=== PATIENT | female | born 1935 | race Caucasian/White ===

== ENCOUNTER 2024-11-30 10:48 | Observation (INO) ==
--- NOTE | 2024-11-03 14:14 | PAT Medication Instructions ---
Medication Instructions Date of Service November 03, 2024 Home Medications Medication Instructions Recorded amlodipine 5 mg tablet 5 mg PO HS #90 tabs 07/22/24 diclofenac sodium 3 % topical gel 2 g topical BID PRN pain #300 grams 07/22/24 losartan 100 mg tablet 50 mg (1/2 x 100 mg) PO BID #90 07/22/24 tabs Medication List: multivitamin 1 tab PO DAILY amlodipine 5 mg tablet 5 mg PO HS diclofenac sodium 3 % topical gel 2 g topical BID PRN pain losartan 100 mg tablet 50 mg (1/2 x 100 mg) PO BID acetaminophen 650 mg tablet,extended release (Tylenol 8 Hour) 650 mg PO Q12H PRN Pain ascorbic acid (vitamin C) 250 mg chewable tablet (Vitamin C) 250 mg PO DAILY cholecalciferol (vitamin D3) 25 mcg (1,000 unit) tablet (Vitamin D3) 25 mcg PO DAILY MEDICATION INSTRUCTIONS: Continue as directed diclofenac sodium 3 % topical gel 2 g topical BID PRN pain (do not apply after bathing prior to surgery) DO NOT take the morning of surgery ascorbic acid (vitamin C) 250 mg chewable tablet (Vitamin C) 250 mg PO DAILY multivitamin 1 tab PO DAILY cholecalciferol (vitamin D3) 25 mcg (1,000 unit) tablet (Vitamin D3) 25 mcg PO DAILY losartan 100 mg tablet 50 mg (1/2 x 100 mg) PO BID Take morning of surgery With a small sip of water, OTHERWISE NOTHING TO EAT OR DRINK AFTER MIDNIGHT: acetaminophen 650 mg tablet,extended release (Tylenol 8 Hour) 650 mg PO Q12H PRN Pain Take evening before surgery amlodipine 5 mg tablet 5 mg PO HS losartan 100 mg tablet 50 mg (1/2 x 100 mg) PO BID acetaminophen 650 mg tablet,extended release (Tylenol 8 Hour) 650 mg PO Q12H PRN Pain Other Notes If you have any questions please call us at [phone] or [phone] or [phone] or [phone]
--- NOTE | 2024-11-13 11:17 | Anesthesiology Consultation ---
Date of Service November 13, 2024 Assessment & Plan (1) Encounter for pre-operative examination: - Infectious disease screening: Per assessment on 11/13/24- No known recent infectious disease contacts or current infectious disease symptoms. - Outpatient joint assessment: Pt currently scheduled for inpatient pathway. If surgeon requests review for outpatient joint pathway, patient is not recommended candidate for outpatient joint program from anesthesia standpoint based on available information. Chart Review Chart Review: Acceptable Risk for Surgery and Patient seen in Pre Admission Testing Teaching & Discussion Pre-Anesthesia Teaching/Discussion Notes: Instructed NPO after midnight before surgery,except medications with 15 cc of water. Medication instructions provided according to the PAT guidelines. History Surgery Operation Date: 11/30/24 10:00 Proposed Procedures p Robotic assisted Left Total Knee Arthroplasty - Don Rios DO Height/Weight Height: 5 ft 2 in Weight: 73.8 kg Allergies Allergy/AdvReac Type Severity Reaction Status Date / Time hydrochlorothiazide AdvReac Mild Hyponatremi Verified 11/03/24 12:21 a Medications Home Medications Medication Instructions Recorded Confirmed Last Taken multivitamin 1 tab PO DAILY 11/10/20 11/03/24 Unknown amlodipine 5 mg tablet 5 mg PO HS #90 tabs 07/22/24 11/03/24 Unknown diclofenac sodium 3 % topical gel 2 g topical BID PRN pain #300 grams 07/22/24 11/03/24 Unknown losartan 100 mg tablet 50 mg (1/2 x 100 mg) PO BID #90 07/22/24 11/03/24 Unknown tabs acetaminophen 650 mg 650 mg PO Q12H PRN Pain 11/03/24 11/03/24 Unknown tablet,extended release (Tylenol 8 Hour) ascorbic acid (vitamin C) 250 mg 250 mg PO DAILY 11/03/24 11/03/24 Unknown chewable tablet (Vitamin C) cholecalciferol (vitamin D3) 25 25 mcg PO DAILY 11/03/24 11/03/24 Unknown mcg (1,000 unit) tablet (Vitamin D3) Past Medical History Medical History CKD (chronic kidney disease) HTN (hypertension) Hypertriglyceridemia no meds Osteoarthritis Prediabetes diet controlled Exercise / Class Metabolic Activity III < 4 Walking/Shop/Light housework Past Family History Family History Mother Kidney disease Father Lung disease Silicosis Denies family history of Ovarian cancer Prostate cancer Myocardial infarction Breast cancer Colorectal cancer Past Surgical History Surgical History History of cataract surgery R/L History of wisdom tooth extraction S/P tonsillectomy and adenoidectomy Past Anesthesia History No Hx of Anesthesia Complications and No Family Hx of Anesthesia Complications History of PONV No Hx of PONV and No Hx of Motion Sickness Social History Smoking Status: Former smoker Do You Dip or Chew Tobacco: No Smoking End Date: Quit ~30 years ago (hx social on/off) Hx Alcohol Use: Yes Alcohol type: beer alcohol intake frequency: holidays/special occasions only Hx Substance Use: No substance use type: does not use Review of Systems Patient denies chest pain, shortness of breath, fever, chills, cough, wheezing, palpitations. Physical Exam Vital Signs BP 152/88 P 58 TEMP 97.7 SP02 97%RA RESP 16 Physical Mildly decreased cervical extension range of motion. Full TMJ range of motion. TMD 3 finger breaths Mallampati Score I Dentition: poor dentition, missing sides/molars Lungs: clear throughout to auscultation Cardiac: regular rate and rhythm, no murmurs noted Spine: normal Carotid arteries: negative bruit Extremities: no LE edema Lab Results Anesthesia Preop Results Results Anesthesia Widget: WBC 5.58 K/ul (4.8-10.8) 11/13/24 Hgb 15.4 g/dl (12.0-16.0) 11/13/24 Hct 45.0 % (37.0-47.0) 11/13/24 Plt 231 K/uL (130-400) 11/13/24 Na 138 mmol/L (136-145) 11/13/24 K 4.8 mmol/L (3.5-5.1) 11/13/24 Cl 103 mmol/L (98-107) 11/13/24 CO2 29 mmol/L (21-32) 11/13/24 BUN 15 mg/dl (6-23) 11/13/24 Creat 0.94 mg/dl (0.6-1.2) 11/13/24 Glucose Level 88 mg/dl (70-99(Fasting)) 11/13/24 PT 10.3 Seconds (9.0-12.0) 11/13/24 PTT 29 Seconds (21-31) 11/13/24 INR 0.9 (0.9-1.1) 11/13/24 Blood Type O Positive 11/13/24 Antibody Screen NEGATIVE 11/13/24 Testing Electrocardiogram Date: 11/13/24 SB with first degree AVB at 52pm. LAD. Minimal voltage criteria for LVH, may be normal variant. PRWP, consider anterior WI vs lead placement vs LVH. Chest X-Ray Date: 11/13/24 FINDINGS: There is prominent cardiomegaly without pulmonary vascular congestion. No consolidation or pleural effusion. Lungs are hyperexpanded. IMPRESSION: No acute findings.
--- NOTE | 2024-11-26 13:26 | History & Physical Report ---
Date of Service November 26, 2024 Assessment & Plan (1) Osteoarthritis of left knee: We will proceed with a left total knee arthroplasty. Postoperatively, she will be started on aspirin for DVT prophylaxis and kept overnight in the hospital for postop medical management. She can have the hospital set up home health for discharge. History of Present Illness Chief Complaint: Osteoarthritis left knee. Primary Care Provider: GORDO Watts Lucille is a pleasant 89-year-old female who has been dealing with chronic increasing left knee pain. She said she had a plateau fracture in 1992. She has developed excessive valgus since. It is to the point where she is having difficulty ambulating with the left leg. She is mostly wheelchair-bound because of her left knee. X-rays show advanced osteoarthritis mostly involving the lateral compartment. After failed conservative treatment, she has elected proceed with a left total knee arthroplasty. Allergies Allergy/AdvReac Type Severity Reaction Status Date / Time hydrochlorothiazide AdvReac Mild Hyponatremi Verified 11/03/24 12:21 a Home Medications Medication Instructions Recorded Confirmed Type multivitamin 1 tab PO DAILY 11/10/20 11/03/24 History amlodipine 5 mg tablet 5 mg PO HS #90 tabs 07/22/24 11/03/24 Rx diclofenac sodium 3 % topical gel 2 g topical BID PRN pain #300 grams 07/22/24 11/03/24 Rx losartan 100 mg tablet 50 mg (1/2 x 100 mg) PO BID #90 07/22/24 11/03/24 Rx tabs acetaminophen 650 mg 650 mg PO Q12H PRN Pain 11/03/24 11/03/24 History tablet,extended release (Tylenol 8 Hour) ascorbic acid (vitamin C) 250 mg 250 mg PO DAILY 11/03/24 11/03/24 History chewable tablet (Vitamin C) cholecalciferol (vitamin D3) 25 25 mcg PO DAILY 11/03/24 11/03/24 History mcg (1,000 unit) tablet (Vitamin D3) Past Med/Surg History Problem List (Updated 11/26/24 @ 13:26 by Don Rios DO) Osteoarthritis of left knee Encounter for pre-operative examination Hyponatremia Chronic kidney disease, stage 3 (moderate) Hypertriglyceridemia Osteoarthritis Prediabetes Hypertension (~10/2020) Medical History Hypertriglyceridemia no meds HTN (hypertension) Osteoarthritis CKD (chronic kidney disease) Prediabetes diet controlled Surgical History History of cataract surgery R/L History of wisdom tooth extraction S/P tonsillectomy and adenoidectomy Family History Mother Kidney disease Father Lung disease Silicosis Denies family history of Ovarian cancer Prostate cancer Myocardial infarction Breast cancer Colorectal cancer Social History Smoking Status: Former smoker Tobacco Type: Cigarettes Age Started Using Tobacco: 23; Age Quit Using Tobacco: 62; packs per day: 0.25; Second Hand Exposure: No; Do You Dip or Chew Tobacco: No; Hx Alcohol Use: Yes Alcohol type: beer Alcohol Intake Frequency: 2-4 x/Month Hx Substance Use: No Preferred Language: Amharic Communication Ability: Effective Hearing Ability: Normal Keg Raiser Required: No Beliefs That Will Affect Care: None marital status: / Current Living Situation: Family Current Living Situation Comment: son lives with her and granddaughter current occupational status: retired Feels Safe at Home: Yes Childhood Exposure to Second-Hand Smoke: No Diet: regular caffeine: Yes (coffee x 2 - 3 per day) during the past year weight has: remained stable Dental Care, Regularly: Yes Physical Activity Frequency: Daily Seatbelt Use: always Sunscreen Use: No (does not go in sun) Assistive Devices: Cane and Glasses Review of Systems All systems reviewed & are unremarkable except as noted in HPI & below. Physical Exam On physical exam of the left knee, she has a significant valgus deformity. Tenderness palpation of the distal lateral femoral condyle and over the lateral joint line.. Constitutional WD/WN, vitals as above Eyes PERRL, conjunctivae normal, anicteric sclerae ENMT external ear and nose normal, oropharynx normal Neck trachea midline, no thyromegaly Respiratory normal respiratory effort Cardiovascular RRR, no murmur, no edema Gastrointestinal (Abdomen) normal bowel sounds, soft, nontender, no hepatosplenomegaly Psychiatric A+Ox3, euthymic affect Results & Data Results & Data Laboratory Results . Diagnostic Findings X-rays of the left knee show advanced osteoarthritis with joint space narrowing, osteophyte formation, and [id number] articulation.. PG Care Time/CCT Total # of Minutes Spent Total Time Spent with Patient: Total time spent is greater than 50% in coordination of care (as documented) at patient's floor/unit and/or counseling patient: Coding Level of Care Code None Diagnoses Osteoarthritis of left knee M17.12
[2024-11-30] MEDS: FAMOTIDINE 20 MG TAB PO SCH (10:46)
[2024-11-30] MEDS: GABAPENTIN 300 MG CAP PO SCH (10:46)
[2024-11-30] MEDS: dexAMETHasone**PF** 10 MG/ML VIAL IV SCH (10:46)
[2024-11-30] MEDS: ACETAMINOPHEN 500 MG TAB PO SCH ×2 (10:46→22:09)
[2024-11-30] MEDS: LR 60ML/HR IV SCH (10:47)
[~2024-11-30 10:48] MED LIST: BUPIVACAINE 0.5 % 5 MG/1 ML PF 10ML VIAL ONE; BUPIVACAINE/EPINEPHRINE 0.25% 1:200,000 30 ML VIAL ONE; DEXAMETHASONE SOD INJ 4 MG/ML VIAL ONE
[2024-11-30] MEDS: LR 500ML BOLUS, THEN 15ML/HR IV SCH (11:05)
[2024-11-30] MEDS ORDERED: PROPOFOL IV EMULSION 10 MG/ML 20 ML VIAL IV ONE (11:11)
[2024-11-30] MEDS ORDERED: MIDAZOLAM HCL 1 MG/ML 2ML VIAL ONE (11:11)
--- NOTE | 2024-11-30 11:31 | History & Physical Bridge Note ---
Date of Service November 30, 2024 History & Physical Bridge Note I have examined the patient, reviewed the History & Physical and in the interval since the performance of the History & Physical I have noted the following changes of clinical significance: no changes noted
[2024-11-30] MEDS: TRANEXAMIC ACID 1,000 MG **IV Pre-op IV SCH (12:06)
[2024-11-30] MEDS ORDERED: ONDANSETRON INJ 2 MG/ML 2 ML VIAL IV PRN ×2 (13:03→16:22)
[2024-11-30] MEDS ORDERED: ATROPINE SULFATE 0.1 MG/ML 10ML SYR IV PRN (13:03)
[2024-11-30] MEDS: ORTHO JOINT ANESTHETIC ONE (13:05)
[2024-11-30] MEDS: ROPIV 0.5% 246mg, Ketorolac 30mg, EPINEPHrine 0.5mg in NSS INFIL SCH (13:55)
--- NOTE | 2024-11-30 14:43 | Operative Report ---
PG Post Operative Report Pre & Post Diagnosis Operation Date: 11/30/24 12:05 Pre-Op Diagnosis: Osteoarthritis of left knee Post-Op Diagnosis: Osteoarthritis of left knee I identified the patient and participated in the time-out.: Yes Procedure Operation Date: 11/30/24 12:05 Actual Procedures p Robotic Assisted Left Total Knee Arthroplasty(Left) - Don Rios DO Surgeon Don Rios DO Stock Taker Tai Schaffer PA-C Estimated Blood Loss 30 Findings Consistent with Post-Op Diagnosis Specimens Left femoral and tibial bone Description of Procedure Implants used: I used a Richard Persona total knee arthroplasty system with a size 9 narrow PS femur, D tibia, 31 oval patella, and a size 10 CPS polyethylene bearing. All components were cemented in place with Biomet cement. Lucille arrived [facility] for the above procedure. She was seen in the preoperative holding area and the operative extremity was identified and signed. She was given a preoperative antibiotic, TXA, a spinal anesthetic and an adductor nerve block. She was taken back to the operating room and laid on the table in supine position. She was given basic sedation. The operative knee was then prepped and draped in sterile fashion. A timeout was done, and the patient and the operative extremity was properly identified. A midline incision was made directly over the patella. Dissection was taken down to the extensor mechanism. A medial parapatellar arthrotomy was used. The medial retinaculum was released and the fat pad was mostly excised. The knee was flexed and the ACL, PCL, and meniscus were removed. The alignment of the knee replacement was assisted with a [employer] robotic knee. The femoral array was pinned in the distal femur and the tibial array was pinned using a percutaneous technique in the upper shaft of the tibia. The robot was appropriately calibrated and the structure of the knee was mapped out. The components were then manipulated on the screen to account for any malalignment and to assist in gap balancing. Once I was happy with the placement of the components on the screen, a distal femoral cutting guide was brought in place. The distal femur was then resected. The femur measured to be a size 9. A 4-in-1 cutting block was then put into place by the robot and 2 peg holes were drilled. The 4-in-1 cutting block was then impacted into place and anterior, posterior, and chamfer cuts were made. The cutting block was then brought down to the tibia and pinned into place. The proximal tibia was then resected. The posterior aspect of the knee was then opened up and any additional meniscus fragments and osteophytes were removed. The tibia measured to be a size D. The tibial plate was then placed in the appropriate rotation and the tibia was drilled and punched. Trial components were then placed. The patella was then everted and 9 mm was resected off the posterior aspect of the patella. The patella measured to be a size 31 oval. 3 peg holes were then drilled. A trial patella was placed. A size 10 CPS polyethylene insert was then trialed. The knee was brought through a full range of motion and felt to be stable. Trial components were then removed. The surrounding soft tissues were injected with 100 cc of an orthopedic pain control cocktail. All components were then cemented into place with Biomet cement. The final polyethylene insert was then snapped into place. Once cement was dry the tourniquet was deflated. Hemostasis was obtained. A dilute betadyne lavage was then done for 3 minutes. The joint was then irrigated with normal saline solution. The medial parapatellar arthrotomy was then closed with #1 Vicryl suture. The skin was lynne sed with 2-0 Vicryl, 3-0V lock suture, and Sylwia zip line. A soft compressive dressing was placed. She was then transferred to a hospital bed and taken to the postanesthesia care unit in stable condition. She tolerated the procedure well. Tai Schaffer PA-C, was present for the entire procedure. He was critical for patient positioning, prepping, draping, retraction exposure, wound closure and application of sterile dressing. I attest to the content of the Intraoperative Record and any orders documented therein. Any exceptions are noted below.
--- NOTE | 2024-11-30 15:10 | XRay Report ---
TWO VIEWS LEFT KNEE CLINICAL HISTORY: Postoperative examination. FINDINGS: AP and crosstable lateral portable views of the left knee are obtained. A left knee arthrop lasty is in near anatomic alignment. There has been undersurface remodeling of the patella. No acute fracture is seen. Soft tissue edema and subcutaneous gas expected postsurgical changes. IMPRESSION: Expected postoperative changes status post left knee arthroplasty. No acute fracture is s een. ACT 112: Negative or not required by law. Electronically signed by: Brad Masters M.D. 11/30/2024 3:09 PM
--- NOTE | 2024-11-30 15:50 | Anesthesiology Progress Note ---
Date of Service November 30, 2024 Anesthesia Post Procedure Vital Signs Vital Signs: Temp Pulse Pulse Resp BP Pulse Ox O2 Del Method 11/30/24 15:35 65 20 145/61 H 95 Nasal Cannula 11/30/24 15:25 57 L 16 144/62 H 96 Nasal Cannula 11/30/24 15:15 62 20 136/62 93 Room Air 11/30/24 15:05 36.5 C 73 16 128/60 95 Room Air 11/30/24 14:55 65 18 122/62 97 Oxymask 11/30/24 14:45 64 18 121/57 L 97 Oxymask 11/30/24 14:37 37.1 C 68 18 124/56 L 96 Oxymask 11/30/24 10:25 36.8 C 65 20 192/81 H 96 Room Air O2 Flow Rate 11/30/24 15:35 2 11/30/24 15:25 2 11/30/24 15:15 11/30/24 15:05 11/30/24 14:55 4 11/30/24 14:45 4 11/30/24 14:37 6 11/30/24 10:25 Transfer of Care Handoff Completed per policy Notes Mental Status: alert / awake / arousable Patient Amnestic to Procedure: Yes Nausea / Vomiting: adequately controlled Pain: adequately controlled Airway Patency, RR, SpO2: stable & adequate BP & HR: stable & adequate Hydration State: stable & adequate Anesthetic Complications: no major complications apparent
[2024-11-30] MEDS ORDERED: NALOXONE HCL 0.4 MG/1 ML VIAL/CARP IV PRN (16:22)
[2024-11-30] MEDS ORDERED: METOCLOPRAMIDE HCL INJ 5 MG/ML 2 ML VIAL IV PRN (16:22)
[2024-11-30] MEDS ORDERED: MAGNESIUM HYDROXIDE SUSP 30 ML UDC PO PRN (16:22)
[2024-11-30] MEDS ORDERED: HYDROmorphone INJ 0.5 MG/0.5 ML SYR IV PRN (16:22)
[2024-11-30] MEDS: KETOROLAC TROMETHAMINE 15 MG/ML VIAL IV SCH (17:54)
[2024-11-30] MEDS: SODIUM CHLORIDE 0.9% 1,000 ML IV SCH (17:55)
[2024-11-30] MEDS: LOSARTAN POTASSIUM 50 MG TAB PO SCH (20:42)
[2024-11-30] MEDS: DOCUSATE SODIUM 100 MG CAP PO SCH (20:42)
[2024-11-30] MEDS: SENNA 8.6 MG TAB PO SCH (20:42)
[2024-11-30] MEDS: ASPIRIN 81 MG ECTAB PO SCH (20:43)
[2024-12-01 04:08] VITALS: TEMP 97.7
[2024-12-01 07:08] VITALS: BP 148/71; PULSE 56; RESP 16; O2SAT 94
[2024-12-01] MEDS: MULTIVITAMIN TAB PO SCH (08:17)
--- NOTE | 2024-12-01 09:30 | Orthopedic Progress Note ---
Date of Service December 01, 2024 Assessment & Plan (1) Status post total left knee replacement: * Continue Current Treatment * Disposition: home * Daily treatment: Physical Therapy/ Occupational Therapy per protocol * Weight bearing status: WBAT * Continue to monitor for ABLA * Pain control * DVT prophylaxis, ASA * Office/hospital f/u 2 weeks for progress check and staple/suture removal * Plan for discharge today pending PT/OT clearance Subjective . Active Problems: S/p left TKA POD 1 89 y/o female s/p left TKA. Doing well overall, pain managed and improved function. Denies fever/chills, chest pain/SOB, nausea/vomiting. Otherwise no complaints. Review of Systems All systems reviewed & are unremarkable except as noted in HPI & below. Physical Exam . * General: Alert and oriented, no acute distress * Constitutional: well-developed, well-nourished. * Respiratory: Normal respiratory effort, no distress * Gastrointestinal: No tenderness to palpation, no rigidity or guarding. * Skin: No rash or lesion. * Neurologic: Grossly normal * Musculoskeletal: Left knee surgical dressing CDI, not removed for exam. Otherwise no obvious deformity or overlying skin changes RLE. Diffuse TTP distal thigh and knee region. Otherwise no specific tenderness of proximal thigh, lower leg, foot/ankle. AROM knee flexion 100 degrees. AROM foot/ankle intact. Sensation intact plantar/dorsal foot. Brisk capillary refill. Results & Data Results & Data Laboratory Results . Diagnostic Findings . PG Care Time/CCT Total # of Minutes Spent Total Time Spent with Patient: Total time spent is greater than 50% in coordination of care (as documented) at patient's floor/unit and/or counseling patient: Coding Level of Care Code 65426 Post Operative Follow-Up Diagnoses Status post total left knee replacement Z96.652
== END 2024-12-01 11:52 | disposition home or self-care (01) ==
LOC: 3N 10:48 → ASU 10:48